=== PATIENT | male | born 1960 | race Caucasian/White ===

== ENCOUNTER → 2016-07-26 | Outpatient (REF) | payer BC ==
[2016-07-29 00:06] LABS: VANILLYLMANDELIC ACID,URINE 1.2 mg/L (Undefined); VANILLYLMANDELIC ACID,URINE 24 2.6 mg/24 hr (0.0-7.5)
== END ==
LOC: M LAB REF 10:28
PROVIDERS: ATTEND Internal Medicine
DX: I10 Essential (primary) hypertension (principal)

== ENCOUNTER → 2016-09-02 | Outpatient (CLI) | payer BC ==
[2016-09-02 07:53] LABS: ANION GAP 8 MEQ/L (8-16); BLOOD UREA NITROGEN 12 MG/DL (7-18); CALCIUM LEVEL 8.9 MG/DL (8.5-10.1); CARBON DIOXIDE LEVEL 31 MEQ/L (21-32); CHLORIDE LEVEL 106 MEQ/L (98-107); CHOLESTEROL LEVEL 129 MG/DL (<200); CREATININE FOR GFR 0.85 MG/DL (0.70-1.30); GLOMERULAR FILTRATION RATE > 60.0 (>56); GLUCOSE, FASTING 137 MG/DL (70-105); POTASSIUM SERUM 4.2 MEQ/L (3.5-5.1); SODIUM LEVEL 145 MEQ/L (136-145); TRIGLYCERIDES LEVEL 169 MG/DL (<150)
== END ==
LOC: M LAB 06:30
PROVIDERS: ATTEND Physician Assistant Medical
DX: E11.65 Type 2 diabetes mellitus with hyperglycemia (principal); E78.2 Mixed hyperlipidemia

== ENCOUNTER → 2017-08-22 | Outpatient (CLI) | payer BC ==
[2017-08-22 08:14] LABS: HEMATOCRIT 50.6 % (42.0-52.0); HEMOGLOBIN 17.6 g/dl (14.0-18.0); MEAN CORPUSCULAR HGB CONC 34.8 g/dl (32.0-36.5); MEAN CORPUSCULAR VOLUME 89.1 fl (80.0-96.0); PLATELET COUNT, AUTOMATED 222 10^3/uL (150-450); RED BLOOD COUNT 5.68 10^6/uL (4.30-6.10); RED CELL DISTRIBUTION WIDTH 12.2 % (11.5-14.5); WHITE BLOOD COUNT 5.4 10^3/uL (4.0-10.0)
[2017-08-22 08:40] LABS: ALBUMIN 4.5 GM/DL (3.2-5.2); ALBUMIN/GLOBULIN RATIO 1.61 (1.00-1.93); ALKALINE PHOSPHATASE 79 U/L (45-117); ALT/SGPT 27 U/L (12-78); ANION GAP 8 MEQ/L (8-16); AST/SGOT 16 U/L (7-37); BILIRUBIN,TOTAL 0.4 MG/DL (0.2-1.0); BLOOD UREA NITROGEN 15 MG/DL (7-18); CALCIUM LEVEL 8.3 MG/DL (8.5-10.1); CARBON DIOXIDE LEVEL 27 MEQ/L (21-32); CHLORIDE LEVEL 108 MEQ/L (98-107); CHOLESTEROL LEVEL 140 MG/DL (<200); CHOLESTEROL RISK RATIO 4.666 (<5); GLOMERULAR FILTRATION RATE > 60.0 (>56); GLUCOSE, FASTING 157 MG/DL (70-100); HDL CHOLESTEROL 30 MG/DL (>40); LDL CHOLESTEROL 45.2 MG/DL (<100); NON-HDL-C 110 MG/DL; POTASSIUM SERUM 4.3 MEQ/L (3.5-5.1); SODIUM LEVEL 143 MEQ/L (136-145); TOTAL PROTEIN 7.3 GM/DL (6.4-8.2); TRIGLYCERIDES LEVEL 324 MG/DL (<150)
[2017-08-22 08:47] LABS: CREATININE, URINE 62.4 MG/DL; MALB URINE SIEMENS 6.6 MG/L; MAU/CREAT RATIO 10.5 MCG/MG (0.0-30.0)
== END ==
LOC: M LAB 07:26
DX: E11.65 Type 2 diabetes mellitus with hyperglycemia (principal)
CPT/HCPCS: 80053

== ENCOUNTER → 2019-02-23 | Outpatient (CLI) | payer BC ==
[2019-02-23 10:16] LABS: ALBUMIN 4.3 GM/DL (3.2-5.2); ALT/SGPT 24 U/L (12-78); BILIRUBIN,TOTAL 0.6 MG/DL (0.2-1.0); BLOOD UREA NITROGEN 13 MG/DL (7-18); CALCIUM LEVEL 8.4 MG/DL (8.5-10.1); CARBON DIOXIDE LEVEL 28 MEQ/L (21-32); CHLORIDE LEVEL 107 MEQ/L (98-107); CHOLESTEROL LEVEL 122 MG/DL (<200); CHOLESTEROL RISK RATIO 3.812 (<5); CREATININE FOR GFR 0.76 MG/DL (0.70-1.30); GLOMERULAR FILTRATION RATE > 60.0 (>56); GLUCOSE, FASTING 135 MG/DL (70-100); HDL CHOLESTEROL 32 MG/DL (>40); LDL CHOLESTEROL 60 MG/DL (<100); NON-HDL-C 90 MG/DL; POTASSIUM SERUM 3.8 MEQ/L (3.5-5.1); SODIUM LEVEL 142 MEQ/L (136-145); TOTAL PROTEIN 6.7 GM/DL (6.4-8.2); TRIGLYCERIDES LEVEL 148 MG/DL (<150)
[2019-02-23 10:26] LABS: MALB URINE SIEMENS 11.4 MG/L; MAU/CREAT RATIO 11.1 MCG/MG (0.0-30.0)
== END ==
LOC: M LAB 07:58
PROVIDERS: ATTEND Nurse Practitioner Family
DX: E78.2 Mixed hyperlipidemia (principal); E11.65 Type 2 diabetes mellitus with hyperglycemia

== ENCOUNTER → 2020-02-13 | Outpatient (CLI) | payer BC ==
[2020-03-23 12:02] LABS: BLOOD UREA NITROGEN 20 MG/DL (7-18); GLOMERULAR FILTRATION RATE > 60.0 (>56)
== END ==
LOC: M LAB 17:00
PROVIDERS: ATTEND Psychiatry & Neurology Neurology
DX: I10 Essential (primary) hypertension (principal)

== ENCOUNTER → 2020-02-25 | Outpatient (REF) | payer BC ==
[2020-04-09 11:20] LABS: CREATININE, URINE 67.9 MG/DL; MALB URINE SIEMENS 6.2 MG/L; MAU/CREAT RATIO 9.1 MCG/MG (0.0-30.0)
== END ==
LOC: M LAB REF 11:56
PROVIDERS: ATTEND Nurse Practitioner Family
DX: E11.65 Type 2 diabetes mellitus with hyperglycemia (principal)

== ENCOUNTER 2020-03-03 10:12 | Emergency (ER) | payer BC ==
[2020-03-03] MEDS ORDERED: LIDOCAINE 5% (LIDODERM) PATCH As Ordered ONE (12:00)
[2020-03-03] MEDS ORDERED: LIDOCAINE 5% (LIDODERM) PATCH ONE (12:00)
[2020-04-15 11:34] LABS: APPEARANCE, URINE MANUAL CLEAR (CLEAR)
[2020-04-15 11:35] LABS: BILIRUBIN, URINE MANUAL NEGATIVE (NEGATIVE); COLOR, URINE MANUAL YELLOW (YELLOW); GLUCOSE, URINE (UA) MANUAL 4+(1000 MG/DL) mg/dL (NEGATIVE); KETONE, URINE MANUAL NEGATIVE (NEGATIVE); PROTEIN, URINE MANUAL NEGATIVE (NEGATIVE); SPECIFIC GRAVITY,URINE MANUAL 1.015 (1.002-1.035); UROBILINOGEN, URINE MANUAL NORMAL (NORMAL)
[2020-04-15 11:36] LABS: BLOOD URINE MANUAL POSITIVE (NEGATIVE); LEUKOCYTE ESTERASE, URINE MAN NEGATIVE (NEGATIVE); NITRITE, URINE MANUAL NEGATIVE (NEGATIVE); WBC, URINE NONE SEEN /hpf (0-3)
[2020-04-15 11:37] LABS: BACTERIA, URINE NONE SEEN; HYALINE CAST, URINE NONE SEEN /lpf (0-1); RBC, URINE 15-20 /hpf (0-3); SQUAMOUS EPITHELIAL CELL URINE NONE SEEN /hpf (SMALL AMT)
[2020-04-17 11:46] LABS: BASO # 0.1 10^3/uL (0.0-0.2); BASO % 0.5 % (0.0-1.0); EOS % 0.3 % (0.0-3.0); HEMATOCRIT 48.7 % (42.0-52.0); HEMOGLOBIN 16.7 g/dl (13.5-17.5); LYMPH # 0.9 10^3/uL (1.5-5.0); LYMPH % 8.6 % (24.0-44.0); MEAN CORPUSCULAR HEMOGLOBIN 31.5 pg (27.0-33.0); MEAN CORPUSCULAR HGB CONC 34.3 g/dl (32.0-36.5); MEAN CORPUSCULAR VOLUME 91.7 fl (80.0-96.0); MONO # 0.9 10^3/uL (0.0-0.8); MONO % 8.7 % (0.0-5.0); NEUTROPHILS # 8.3 10^3/uL (1.5-8.5); NEUTROPHILS % 81.2 % (36.0-66.0); PLATELET COUNT, AUTOMATED 215 10^3/uL (150-450); RED BLOOD COUNT 5.31 10^6/uL (4.30-6.10); WHITE BLOOD COUNT 10.2 10^3/uL (4.0-10.0)
[2020-05-25 12:23] LABS: BLOOD UREA NITROGEN 14 MG/DL (7-18); CALCIUM LEVEL 9.5 MG/DL (8.5-10.1); CARBON DIOXIDE LEVEL 32 MEQ/L (21-32); CHLORIDE LEVEL 106 MEQ/L (98-107); CREATININE FOR GFR 1.14 MG/DL (0.70-1.30); GLOMERULAR FILTRATION RATE > 60.0 (>56); GLUCOSE, FASTING 249 MG/DL (70-100); POTASSIUM SERUM 3.7 MEQ/L (3.5-5.1); SODIUM LEVEL 141 MEQ/L (136-145)
== END 2020-03-03 14:55 | disposition home or self-care (01) ==
LOC: M ED 10:12
DX: N23 Unspecified renal colic (principal); K76.0 Fatty (change of) liver, not elsewhere classified; K80.20 Calculus of gallbladder without cholecystitis without obstruction; E11.65 Type 2 diabetes mellitus with hyperglycemia; E78.5 Hyperlipidemia, unspecified; I10 Essential (primary) hypertension; M50.30 Other cervical disc degeneration, unspecified cervical region; Z87.891 Personal history of nicotine dependence; Z86.79 Personal history of other diseases of the circulatory system; F12.10 Cannabis abuse, uncomplicated; Z79.899 Other long term (current) drug therapy; Z88.0 Allergy status to penicillin

== ENCOUNTER → 2020-03-29 | Outpatient (CLI) | payer BC | LOC: M LABSMTC 09:05 | PROVIDERS: ATTEND Urology | DX: Z20.828 Contact with and (suspected) exposure to other viral communicable diseases (principal) | CPT/HCPCS: C9803; U0003 ==

== ENCOUNTER → 2020-09-16 | Outpatient (CLI) | payer BC ==
[2020-09-16 09:42] LABS: ALBUMIN 4.2 GM/DL (3.2-5.2); ALT/SGPT 27 U/L (12-78); BILIRUBIN,TOTAL 0.7 MG/DL (0.2-1.0); BLOOD UREA NITROGEN 22 MG/DL (7-18); CALCIUM LEVEL 8.9 MG/DL (8.5-10.1); CARBON DIOXIDE LEVEL 33 MEQ/L (21-32); CHLORIDE LEVEL 103 MEQ/L (98-107); CHOLESTEROL LEVEL 168 MG/DL (<200); GLOMERULAR FILTRATION RATE > 60.0 (>56); GLUCOSE, FASTING 208 MG/DL (70-100); HDL CHOLESTEROL 32 MG/DL (>40); LDL CHOLESTEROL 84 MG/DL (<100); NON-HDL-C 136 MG/DL; POTASSIUM SERUM 4.2 MEQ/L (3.5-5.1); SODIUM LEVEL 141 MEQ/L (136-145); TOTAL PROTEIN 7.3 GM/DL (6.4-8.2); TRIGLYCERIDES LEVEL 260 MG/DL (<150)
== END ==
LOC: M LAB 07:47
PROVIDERS: ATTEND Nurse Practitioner Family
DX: E78.2 Mixed hyperlipidemia (principal)

== ENCOUNTER 2021-01-09 12:26 | Emergency (ER) | payer BC, OTHER ==
[~2021-01-09] VITALS: Ht 182.9 cm; Wt 107.0 kg
[2021-01-09] MEDS ORDERED: HYDR12.55 PO (12:35)
[2021-01-09] MEDS ORDERED: SIMV40TA20 PO (12:35)
[2021-01-09] MEDS ORDERED: INVO300T PO (12:35)
[2021-01-09] MEDS ORDERED: SERT-141 PO (12:35)
[2021-01-09] MEDS ORDERED: TRUL0.5I SC (12:35)
[2021-01-09] MEDS ORDERED: LOSA50TA88 PO (12:35)
--- NOTE | 2021-01-09 13:29 | REP ---
INDICATION: chest/rib pain after fall. COMPARISON: None. TECHNIQUE: Five views including PA chest. FINDINGS: PA chest radiograph shows no evidence of pneumothorax. There is hazy opacity in the left base and slight blunting of the left lateral pleural angle however. There is some extra thoracic soft tissue emphysema along the left lower lateral chest wall. Assuming the skin is intact, this subcutaneous emphysema implies lung injury. Multiple views of the left ribcage demonstrate a displaced fracture of the anterolateral 6th rib on the left and subtle cortical irregularity of the lateral aspect of the 7th and 8th ribs. Rib views also show the extra thoracic soft tissue emphysema. Mediastinum is not widened. Right lung is clear. Heart is not enlarged. IMPRESSION: 1. Displaced fracture of the anterior aspect of the 6th rib. Probable nondisplaced fractures of the lateral 7th and 8th ribs. 2. Extra thoracic soft tissue emphysema implies lung injury assuming the skin is intact, that is, no penetrating chest wall injury. 3. Slight blunting of the left lateral pleural angle. <Electronically signed by Lamont Wen > 01/09/21 [id number]
[2021-01-09] MEDS ORDERED: LIDOCAINE 5% (LIDODERM) PATCH TD ONE (13:30)
[2021-01-09] MEDS ORDERED: ACETAMINOPHEN TAB 650MG DOSE (2X325MG) PO ONE (13:30)
--- NOTE | 2021-01-09 14:30 | REP ---
INDICATION: further evaluate left rib fractures; ?small pneumothorax. COMPARISON: Plain films today. TECHNIQUE: CT chest performed without the use of intravenous contrast. Sagittal and coronal reconstruction images are performed. FINDINGS: Lungs: There are small calcified granulomas in the right lung, and a tiny calcified granuloma is seen in the left lung base. There is no pneumothorax. There are mild atelectatic changes in the left lung base. Mediastinum: No gross adenopathy. Kathryn: No gross adenopathy. Axilla: No gross adenopathy. Pleura: There is a tiny left pleural effusion. Heart: Not enlarged. Thoracic aorta: No aneurysm. Upper abdominal structures: There are small gallstones in the gallbladder. Visualized osseous structures: There is nondisplaced fracture of the anterolateral left 7th rib. There is also a nondisplaced fracture of the anterior left 5th rib. There is a displaced fracture of the lateral left 6th rib. A small a piece of lung herniates into the fracture site between the 2 fracture fragments. There is a small amount of air in the adjacent chest wall soft tissues, as well as mild edema superficially. IMPRESSION: There are nondisplaced fractures of the anterolateral left 5th and 7th ribs. There is a displaced fracture of the lateral left 6th rib. A small piece of adjacent lung herniates between the fracture fragments. There is a small amount of air in the adjacent chest wall soft tissues. There is no pneumothorax. There are mild atelectatic changes in the left lung base. There is a tiny left pleural effusion. <Electronically signed by Andrea Lomax > 01/09/21 [id number]
[2021-01-09] MEDS ORDERED: LIDO5DIS41 TOP (15:12)
[2021-01-09] MEDS ORDERED: HYDR-3713 PO (15:12)
[2021-01-09] MEDS ORDERED: KETOROLAC 30 MG/ML 1ML VIAL IM ONE (17:10)
--- NOTE | 2021-01-09 19:23 | REP ---
INDICATION: assess for left pneumothorax COMPARISON: 01/09/2021 at 12:57 p.m. TECHNIQUE: Portable AP view of the chest FINDINGS: Lateral left 6th rib fracture is unchanged in appearance. Small amount of adjacent subcutaneous emphysema is noted. No focal consolidation/contusion, effusion, or pneumothorax. Mediastinum and cardiac silhouette are normal. IMPRESSION: Known left rib fracture. No obvious pneumothorax. <Electronically signed by Beny Maxwell > 01/09/21 [id number]
[2021-01-09] MEDS ORDERED: KETO10TAB PO (19:32)
[2021-01-09] MEDS ORDERED: OXYCODONE/APAP 5MG/325MG(BULK FOR ED) 1 TABLET PO ONE (20:55)
[2021-01-09] MEDS ORDERED: **NOTE PATIENT COMMENT** MISC XX SCH (21:00)
[2021-01-09] MEDS ORDERED: KETOROLAC TROMETHAMINE 10 MG TAB PO ONE (22:45)
[2021-01-09 23:08] VITALS: BP 129/81
--- NOTE | 2021-01-14 09:16 | REP ---
INDICATION: possible pneumothorax COMPARISON: 01/09/2021 TECHNIQUE: PA and lateral. FINDINGS: Mediastinum and cardiac silhouette are normal. Trace left basilar atelectasis cannot be excluded. Lateral left 6th rib fracture and small amount of adjacent subcutaneous emphysema along the lateral chest wall noted. No obvious effusion, contusion, or pneumothorax. IMPRESSION: Posttraumatic changes as noted above. No evidence for pneumothorax. <Electronically signed by Beny Maxwell > 01/09/211951
== END 2021-01-09 23:09 | disposition home or self-care (01) ==
LOC: M ED 12:26
DX: S22.42XA Multiple fractures of ribs, left side, initial encounter for closed fracture (principal); W18.39XA Other fall on same level, initial encounter; Y92.89 Other specified places as the place of occurrence of the external cause; I10 Essential (primary) hypertension; E11.9 Type 2 diabetes mellitus without complications; Z79.899 Other long term (current) drug therapy; Z88.0 Allergy status to penicillin
CPT/HCPCS: 71045; 71046; 71101; 71250; 99283; J1885

== ENCOUNTER → 2021-01-13 | Outpatient (CLI) | payer OTHER ==
[~2021-01-13] MED LIST: HYDR-3713 PO; HYDR12.55 PO; INVO300T PO; KETO10TAB PO; LIDO5DIS41 TOP; LOSA50TA88 PO; SERT-141 PO; SIMV40TA20 PO; TRUL0.5I SC
--- NOTE | 2021-01-13 14:43 | REP ---
INDICATION: RIB FRACTURE ON LEFT SIDE COMPARISON: 01/09/2021 TECHNIQUE: PA and lateral. FINDINGS: Mediastinum and cardiac silhouette are normal. Bibasilar atelectasis and small pleural effusions (left greater than right) suggested and possibly slightly increased from prior examination. No pneumothorax identified. Left lateral rib fracture unchanged in appearance. IMPRESSION: Mild bibasilar atelectasis and suspected small pleural effusions (left greater than right) <Electronically signed by Beny Maxwell > 01/13/21 [id number]
== END ==
LOC: M RAD 14:22
PROVIDERS: ATTEND Internal Medicine
DX: J98.11 Atelectasis (principal)

== ENCOUNTER 2021-04-15 14:13 | Emergency (ER) | payer BC ==
[~2021-04-15] VITALS: Ht 182.9 cm; Wt 101.5 kg
[2021-04-15 14:14] VITALS: BP 120/69
[2021-04-15] MEDS ORDERED: LIDOCAINE 5% (LIDODERM) PATCH TD ONE (17:25)
[2021-04-15] MEDS ORDERED: methocarbamoL 500 MG TAB PO ONE (17:25)
[2021-04-15 17:32] LABS: RSV AMPLIFICATION NEGATIVE (NEGATIVE)
[2021-04-15] MEDS ORDERED: KETOROLAC 30 MG/ML 1ML VIAL IV ONE (17:35)
[2021-04-15] MEDS ORDERED: NS 1,000 ML IV ONE ×2 (17:35→22:05)
[2021-04-15] MEDS ORDERED: PANTOPRAZOLE 40MG VIAL (C9113 PER 1) IV ONE (17:35)
[2021-04-15] MEDS ORDERED: ONDANSETRON 4MG/2ML VIAL IV ONE (17:35)
[2021-04-15 18:54] LABS: BASO % 0.5 % (0.0-1.0); HEMATOCRIT 55.8 % (42.0-52.0); HEMOGLOBIN 19.3 g/dl (13.5-17.5); LYMPH % 23.5 % (24.0-44.0); MEAN CORPUSCULAR HEMOGLOBIN 30.9 pg (27.0-33.0); MEAN CORPUSCULAR HGB CONC 34.6 g/dl (32.0-36.5); MEAN CORPUSCULAR VOLUME 89.3 fl (80.0-96.0); MONO # 0.6 10^3/uL (0.0-0.8); MONO % 14.2 % (2.0-8.0); NEUTROPHILS # 2.7 10^3/uL (1.5-8.5); NEUTROPHILS % 61.3 % (36.0-66.0); PLATELET COUNT, AUTOMATED 150 10^3/uL (150-450); RED BLOOD COUNT 6.25 10^6/uL (4.30-6.10); WHITE BLOOD COUNT 4.4 10^3/uL (4.0-10.0)
[2021-04-15] MEDS ORDERED: ISOVUE-370 76% 100ML VIAL As Ordered ONE (19:12)
[2021-04-15 19:20] LABS: ALBUMIN 3.8 GM/DL (3.2-5.2); BILIRUBIN,DIRECT 0.2 MG/DL (0.0-0.2); BILIRUBIN,TOTAL 0.5 MG/DL (0.2-1.0); TOTAL PROTEIN 7.2 GM/DL (6.4-8.2)
--- NOTE | 2021-04-15 20:33 | REPVR ---
PROCEDURE INFORMATION: Exam: CT Abdomen And Pelvis With Contrast Exam date and time: 04/15/2021 7:48 PM Age: 61 years old Clinical indication: Abdominal pain; Generalized; Additional info: Abdominal pain/n/v TECHNIQUE: Imaging protocol: Computed tomography of the abdomen and pelvis with contrast. Radiation optimization: All CT scans at this facility use at least one of these dose optimization techniques: automated exposure control; mA and/or kV adjustment per patient size (includes targeted exams where dose is matched to clinical indication); or iterative reconstruction. Contrast material: ISOVUE 370; Contrast volume: 100 ml; Contrast route: INTRAVENOUS (IV); COMPARISON: CT Chest without contrast 01/09/2021 1:51 PM FINDINGS: Liver: There is a diffuse decrease in hepatic parenchymal density, consistent with steatosis. Gallbladder and bile ducts: There are gallstones present. No evidence of cholecystitis demonstrated. Pancreas: Normal. No ductal dilation. Spleen: There is mild splenomegaly with a maximum span of 13.7 centimeters. No focal abnormalities demonstrated. Adrenal glands: Normal. No mass. Kidneys and ureters: Normal. No hydronephrosis. Stomach and bowel: Small focus of gas which appears to penetrate the gastric wall at the lesser curvature in the cardia. The possibility of a penetrating ulcer to be excluded clinically. Appendix: No evidence of appendicitis. Intraperitoneal space: Unremarkable. No free air. No significant fluid collection. Vasculature: Unremarkable. No abdominal aortic aneurysm. Lymph nodes: Unremarkable. No enlarged lymph nodes. Urinary bladder: Unremarkable as visualized. Reproductive: The prostate gland demonstrates mild hyperplasia. Bones/joints: Parenchymal scarring left lower lobe associated with an age indeterminate rib fracture. Age indeterminate rib fractures left 6th and 7th ribs, nonunited at the 6th rib. Mild central spinal stenosis L2-L3, moderate to severe central spinal stenosis L3-L4, severe central spinal stenosis L4-L5. Small sclerotic focus in the left sacral region. Soft tissues: See "Stomach and bowel" finding. IMPRESSION: 1. Age indeterminate rib fractures left 6th and 7th ribs, nonunited at the 6th rib. 2. There is a diffuse decrease in hepatic parenchymal density, consistent with steatosis. 3. There are gallstones present. No evidence of cholecystitis demonstrated. 4. There is mild splenomegaly with a maximum span of 13.7 centimeters. No focal abnormalities demonstrated. 5. Mild prostatic hyperplasia. 6. Small focus of gas which appears to penetrate the gastric wall at the lesser curvature in the cardia. The possibility of a penetrating ulcer to be excluded clinically. Electronically signed by: Chapo Conrad On 04/15/2021 20:33:02 PM
[2021-04-15] MEDS ORDERED: **NOTE PATIENT COMMENT** MISC XX SCH (21:00)
== END 2021-04-16 01:55 | disposition home or self-care (01) ==
LOC: M ED 14:13
DX: U07.1 COVID-19 (principal); K80.20 Calculus of gallbladder without cholecystitis without obstruction; R16.1 Splenomegaly, not elsewhere classified; N40.0 Benign prostatic hyperplasia without lower urinary tract symptoms; E11.9 Type 2 diabetes mellitus without complications; I10 Essential (primary) hypertension; E78.5 Hyperlipidemia, unspecified; Z88.0 Allergy status to penicillin; Z79.899 Other long term (current) drug therapy
CPT/HCPCS: 74177; 80047; 80076; 83605; 83690; 85025; 86140; 87631; 96361; 96374; 96375; 99283; C9113; J1885; J2405; Q9967

== ENCOUNTER 2021-04-16 02:00 | Outpatient (CLI) | payer BC ==
[2021-04-16] VITALS (8 sets, daily range): BP systolic 145–160; BP diastolic 76–90
--- NOTE | 2021-04-16 | CR.PDOC ---
General Date of Consultation: Apr 15, 2021 Consultation REASON FOR CONSULTATION/CHIEF COMPLAINT: COVID-19 positive HISTORY OF PRESENT ILLNESS: 61-year-old male with a past medical history of hypertension diabetes and depression presented to the ER complaining of generalized malaise fevers chills mild abdominal discomfort. Was patient was afebrile without leukocytosis normotensive and saturating 96% on room air. He was found to have an incidental COVID-[address] abdomen was performed to evaluate for abdominal pain, Small focus of gas which appears to penetrate the gastric wall at the lesser curvature of cardia was noted. Per ER, this was discussed with Dr. Swift, who recommended no acute intervention. Patient received 2L NS bolus, toradol and PPI. He meets criteria for monoclonal infusion and has been explained risks and benefits. Patient has verbalized understanding and signed the consent. ALLERGIES: Please see below. HOME MEDICATIONS: Please see below. PAST MEDICAL HISTORY: Hypertension Type 2 diabetes depression FAMILY HISTORY: Reviewed with patient, no pertinent history was provided SOCIAL HISTORY: Patient denies smoking Patient denies etoh use Patient denies illicit drug use REVIEW OF SYSTEMS: 10 point ROS conducted, relevant findings were noted in the HPI. PHYSICAL EXAMINATION: VITAL SIGNS: please see below General: NAD, comfortable HEENT: PERRLA, EOMI, sclerae clear Neck: supple, normal ROM, no JVD Respiratory: lungs CTAB, no wheeze, no rales, no crackles CVS: RRR, normal S1, S2, no murmurs Abdo: soft, no masses, no hepatosplenomegaly, BS+, no rebound tenderness Extremities: no edema, pulses 2+ MSK: no joint deformities, normal ROM Neuro: no focal neuro deficits, moving all 4 extremities, CN2-12 intact. Strength 5/5 in all 4 extremities. No nystagmus. Psych: calm, cooperative, AAO x 3 LABORATORY DATA: Please see below. IMAGING: CT abdo pelvis (04/15/21): IMPRESSION: 1. Age indeterminate rib fractures left 6th and 7th ribs, nonunited at the 6th rib. 2. There is a diffuse decrease in hepatic parenchymal density, consistent with steatosis. 3. There are gallstones present. No evidence of cholecystitis demonstrated. 4. There is mild splenomegaly with a maximum span of 13.7 centimeters. No focal abnormalities demonstrated. 5. Mild prostatic hyperplasia. 6. Small focus of gas which appears to penetrate the gastric wall at the lesser curvature in the cardia. The possibility of a penetrating ulcer to be excluded clinically. ASSESSMENT/PLAN: COVID-19 infection: Patient is a candidate for monoclonal antibody infusion. He is saturating 96% on room air as well as on exertion. Patient is normotensive. He has no fever. Patient is signed consent after all risks were explained. Patient verbalized understanding. Allergies Coded Allergies: penicillin V (Verified Allergy, Mild, RASH, 01/09/21) Home Medications Scheduled Canagliflozin (Invokana) 300 Mg Tablet, 300 MG PO DAILY for 30 Days, #30 (Reported) Dulaglutide (Trulicity) 1.5 Mg/0.5 Ml Pen.injctr, 1.5 MG SC Q7D, #13 (Reported) Hydrochlorothiazide (Hydrochlorothiazide) 12.5 Mg Tablet, 12.5 MG PO DAILY for 30 Days, #30 (Reported) Losartan Potassium (Losartan Potassium) 50 Mg Tablet, 50 MG PO DAILY for 30 Days, #30 (Reported) Sertraline Hcl (Sertraline HCl) 50 Mg Tablet, 50 MG PO DAILY for 30 Days, #30 (Reported) Simvastatin (Simvastatin) 40 Mg Tablet, 40 MG PO QPM for 30 Days, #30 (Reported) Scheduled PRN Hydrocodone/Acetaminophen (Hydrocodone-Acetamin 5-325 mg) 1 Each Tablet, 1-2 TAB PO Q4-6HP PRN for pain for 3 Days, #40 ALESSIA WISEMAN MD Apr 16, 2021 00:00
[~2021-04-16 02:00] MED LIST changes: +ACETAMINOPHEN TAB 650MG DOSE (2X325MG) PO PRN; +ALBUTEROL 90 MCG/ACT 8GM HFA INHALER INH PRN; +ALBUTEROL SULFATE 2.5 MG/0.5 ML INH NEB SOLN INH PRN; +CASIRIVIMAB/IMDEVIMAB 1,200 MG in NS 250 ML IV ONE; +EPINEPHrine INJ 1 MG/ML 1ML AMP IM PRN; +NS 1,000 ML IV SCH; +diphenhydrAMINE 50MG/ML VIAL (J1200) IV PRN; +methylPREDNISolone 125MG 2ML VIAL IV PRN
[2021-04-16] MEDS ORDERED: CASIRIVIMAB/IMDEVIMAB 1,200 MG in NS 250 ML IV ONE (02:30)
== END 2021-04-16 04:59 | disposition home or self-care (01) ==
LOC: M OPCLI4 02:00 → M ICU 02:00 → M OPCLI4 04:59
PROVIDERS: ATTEND Family Medicine
DX: U07.1 COVID-19 (principal); Z88.0 Allergy status to penicillin
CPT/HCPCS: 96361; M0243

== ENCOUNTER → 2021-05-07 | Outpatient (REF) | payer BC ==
[~2021-05-07] MED LIST changes: -ACETAMINOPHEN TAB 650MG DOSE (2X325MG) PO PRN; -ALBUTEROL 90 MCG/ACT 8GM HFA INHALER INH PRN; -ALBUTEROL SULFATE 2.5 MG/0.5 ML INH NEB SOLN INH PRN; -CASIRIVIMAB/IMDEVIMAB 1,200 MG in NS 250 ML IV ONE; -EPINEPHrine INJ 1 MG/ML 1ML AMP IM PRN; -NS 1,000 ML IV SCH; -diphenhydrAMINE 50MG/ML VIAL (J1200) IV PRN; -methylPREDNISolone 125MG 2ML VIAL IV PRN
[2021-05-07 15:14] LABS: CREATININE, URINE 82.7 MG/DL; MALB URINE SIEMENS 5.1 MG/L; MAU/CREAT RATIO 6.1 MCG/MG (0.0-30.0)
== END ==
LOC: M LAB REF 13:21
PROVIDERS: ATTEND Nurse Practitioner Family
DX: E11.65 Type 2 diabetes mellitus with hyperglycemia (principal)

== ENCOUNTER → 2022-03-05 | Outpatient (CLI) | payer BC ==
[~2022-03-05] MED LIST changes: +LOSA50TA28 PO; -LOSA50TA88 PO
[2022-03-05 11:08] LABS: ALT/SGPT 21 U/L (12-78); BILIRUBIN,TOTAL 0.5 MG/DL (0.2-1.0); BLOOD UREA NITROGEN 16 MG/DL (7-18); CARBON DIOXIDE LEVEL 31 MEQ/L (21-32); CHLORIDE LEVEL 107 MEQ/L (98-107); CHOLESTEROL LEVEL 139 MG/DL (<200); CHOLESTEROL RISK RATIO 4.483 (<5); CREATININE FOR GFR 0.92 MG/DL (0.70-1.30); GLOMERULAR FILTRATION RATE > 60.0 (>56); GLUCOSE, FASTING 125 MG/DL (70-100); HDL CHOLESTEROL 31 MG/DL (>40); LDL CHOLESTEROL 81 MG/DL (<100); NON-HDL-C 108 MG/DL; POTASSIUM SERUM 5.1 MEQ/L (3.5-5.1); SODIUM LEVEL 141 MEQ/L (136-145); TOTAL PROTEIN 7.1 GM/DL (6.4-8.2); TRIGLYCERIDES LEVEL 137 MG/DL (<150)
[2022-03-05 11:16] LABS: MALB URINE SIEMENS 8.2 MG/L; MAU/CREAT RATIO 5.3 MCG/MG (0.0-30.0)
== END ==
LOC: M LAB 09:41
PROVIDERS: ATTEND Nurse Practitioner Family
DX: E78.2 Mixed hyperlipidemia (principal); E11.65 Type 2 diabetes mellitus with hyperglycemia

== ENCOUNTER → 2023-09-28 | Outpatient (REF) | payer BC ==
[2023-09-29 18:33] LABS: CREATININE, URINE 91.2 MG/DL; MALB URINE SIEMENS < 3.0 MG/L; MAU/CREAT RATIO 3.2 MCG/MG (0.0-30.0)
== END ==
LOC: M LAB REF 17:13
PROVIDERS: ATTEND Nurse Practitioner Family
DX: E11.65 Type 2 diabetes mellitus with hyperglycemia (principal)

== ENCOUNTER → 2024-10-04 | Outpatient (CLI) | payer OTHER ==
[2024-10-04 08:37] LABS: CREATININE, URINE 171.7 MG/DL; MAU/CREAT RATIO 12.2 MCG/MG (0.0-30.0)
[2024-10-04 08:37] LABS: ALBUMIN 3.8 G/DL (3.2-5.2); ALKALINE PHOSPHATASE 59 U/L (40-129); ALT/SGPT 14 U/L (7.0-40); AST/SGOT 12 U/L (<34); BILIRUBIN,TOTAL 0.6 MG/DL (0.3-1.2); BLOOD UREA NITROGEN 19 MG/DL (9-23); CALCIUM LEVEL 8.8 MG/DL (8.3-10.6); CARBON DIOXIDE LEVEL 31 MMOL/L (20-31); CHLORIDE LEVEL 103 MMOL/L (98-107); CHOLESTEROL LEVEL 131 MG/DL (<200); CHOLESTEROL RISK RATIO 4.17 (<5); CREATININE FOR GFR 0.89 MG/DL (0.70-1.30); GLOMERULAR FILTRATION RATE > 60.0 (>49); GLUCOSE, FASTING 162 MG/DL (74-106); HDL CHOLESTEROL 31.4 MG/DL (>40); LDL CHOLESTEROL 69.4 MG/DL (<100); NON-HDL-C 99.6 MG/DL; POTASSIUM SERUM 4.3 MMOL/L (3.5-5.1); SODIUM LEVEL 145 MMOL/L (136-145); TOTAL PROTEIN 6.7 G/DL (5.7-8.2); TRIGLYCERIDES LEVEL 151 MG/DL (<150)
== END ==
LOC: M LAB 07:33
PROVIDERS: ATTEND Nurse Practitioner Family
DX: E78.2 Mixed hyperlipidemia (principal); E11.65 Type 2 diabetes mellitus with hyperglycemia